=== PATIENT | female | born 1980 | race Caucasian/White ===

== ENCOUNTER 2022-11-02 08:00 | Outpatient (CLI) | payer MEDICAID ==
[~2022-11-02] VITALS: Ht 162.6 cm; Wt 51.3 kg
== END 2022-11-02 15:00 | disposition home or self-care (01) ==
LOC: SLB 08:00 → SDS 11-04 05:40 → SMU 11-04 05:40 → EDSTATUS 11-04 07:30 → SMU 11-10 10:00 → SDS 11-10 10:00
PROVIDERS: ATTEND Internal Medicine Gastroenterology
DX: K50.90 Crohn's disease, unspecified, without complications (principal); Z20.822 Contact with and (suspected) exposure to COVID-19; Z53.8 Procedure and treatment not carried out for other reasons
CPT/HCPCS: 36415; U0003

== ENCOUNTER 2022-12-23 05:40 | Day surgery (SDC) | payer MEDICAID ==
[~2022-12-23] VITALS: Ht 160 cm; Wt 51.3 kg
[2022-12-23 06:30] LABS: HCG,QUAL RESULT NEGATIVE (NEGATIVE)
[2022-12-23] MEDS ORDERED: MEPERIDINE 50 MG/ML VIAL ONE (07:16)
[2022-12-23] MEDS ORDERED: SIMETHICONE 40 MG/0.6 ML ML ONE (07:16)
[2022-12-23] MEDS ORDERED: MIDAZOLAM HCL 5 MG/5 ML VIAL ONE (07:17)
[2022-12-23 10:26] VITALS: BP_SYST 97
== END 2022-12-23 11:49 | disposition home or self-care (01) ==
LOC: SDS 05:40
PROVIDERS: ATTEND Internal Medicine Gastroenterology
DX: K50.90 Crohn's disease, unspecified, without complications (principal); K52.9 Noninfective gastroenteritis and colitis, unspecified; Z79.4 Long term (current) use of insulin; Z87.891 Personal history of nicotine dependence; Z79.899 Other long term (current) drug therapy
CPT/HCPCS: 44389; 45331; 87426; 84703; 36415; 88305; 99152; G0378; J2250; J2175; 45380; 45385